=== PATIENT | female | born 1995 | race Two or more races ===

== ENCOUNTER 2020-12-23 12:18 | Outpatient (CLI) | payer OTHER ==
[2020-12-23 20:47] LABS: SARS-CoV-2 PCR by NAA Not Detected (NotDetected)
== END 2020-12-23 12:19 | disposition home or self-care (01) ==
LOC: CSHLAB 12:18
PROVIDERS: ATTEND Orthopaedic Surgery
DX: Z20.822 Contact with and (suspected) exposure to COVID-19 (principal); J45.909 Unspecified asthma, uncomplicated
CPT/HCPCS: 87635; U0003; U0005

== ENCOUNTER 2020-12-28 10:09 | Outpatient (CLI) | payer OTHER | END 2020-12-28 10:10 | disposition home or self-care (01) | LOC: CSHCP 10:09 | PROVIDERS: ATTEND Orthopaedic Surgery | DX: J45.909 Unspecified asthma, uncomplicated (principal); R94.2 Abnormal results of pulmonary function studies | CPT/HCPCS: 94060; 94760 ==

== ENCOUNTER 2022-06-19 10:54 | Outpatient (CLI) | payer OTHER | END 2022-06-19 10:55 | disposition home or self-care (01) | LOC: CSHMRI 10:54 | PROVIDERS: ATTEND Internal Medicine | DX: M25.561 Pain in right knee (principal); M25.461 Effusion, right knee; M79.4 Hypertrophy of (infrapatellar) fat pad ==